=== PATIENT | male | born 1975 | race Caucasian/White ===

== ENCOUNTER 2024-06-12 10:38 | Emergency (ER) | payer MEDICAID ==
[~2024-06-12] VITALS: Ht 167.6 cm; Wt 64.0 kg
[~2024-06-12 10:38] MED LIST: COR3 PO; PROT40 MT; SUCR1TAB PO; THIA100T72 PO
[2024-06-12 10:43] VITALS: O2SAT 100
[2024-06-12 10:50] VITALS: BP 160/87; PULSE 98; RESP 16; TEMP 36.3; O2SAT 97
[2024-06-12 12:59] LABS: BASOPHILS % 1.9 % (0.0-2.0); EOSINOPHILS % 3.4 % (0.0-5.0); HEMATOCRIT. 36.2 % (42.0-52.0); HEMOGLOBIN. 11.6 g/dL (14.0-18.0); LYMPHOCYTES % 28.8 % (20.0-50.0); MEAN CORPUSCULAR HEMOGLOBIN 27.1 pg (28.0-32.0); MEAN CORPUSCULAR HGB CONC 32.2 g/dL (31.0-37.0); MEAN CORPUSCULAR VOLUME 84.4 fL (80.0-94.0); MEAN PLATELET VOLUME 8.9 fl (7.4-10.4); MONOCYTES % 7.9 % (2.0-8.0); PLATELET 132 x1000/uL (130-400); RED BLOOD CELL COUNT 4.29 mill/uL (4.7-6.1); RED CELL DISTRIBUTION WIDTH 16.5 % (11.6-14.6); WHITE BLOOD COUNT 6.2 x1000/uL (4.5-11.0)
[2024-06-12 13:00] LABS: CARBON DIOXIDE 25 mEq/L (21-32); CHLORIDE 107 mEq/L (98-107); POTASSIUM 3.9 mEq/L (3.5-5.1); SODIUM 142 mEq/L (136-145)
[2024-06-12 13:02] LABS: CALCIUM 9.3 mg/dL (8.7-10.4)
[2024-06-12 13:05] LABS: CREATININE 0.8 mg/dL (0.6-1.3)
[2024-06-12 13:06] LABS: GLUCOSE 111 mg/dL (70-105); UREA NITROGEN BLOOD 12 mg/dL (9-23)
[2024-06-12 13:07] LABS: TROPONIN I HIGH SENSITIVITY < 4 ng/L (3.0-53)
[2024-06-12 13:12] LABS: INR 1.2; PARTIAL THROMBOPLASTIN TIME 32.2 sec (23.4-31.0); PROTHROMBIN TIME 13.2 sec (9.6-11.0)
[2024-06-12] MEDS ORDERED: PROT40 MT (14:13)
[2024-06-12] MEDS ORDERED: THIA100T72 PO (14:13)
[2024-06-12] MEDS ORDERED: SUCR1TAB PO (14:13)
[2024-06-12] MEDS ORDERED: COR3 PO (14:13)
== END 2024-06-12 14:18 | disposition home or self-care (01) ==
LOC: ER 10:38
DX: I85.10 Secondary esophageal varices without bleeding (principal); Z76.0 Encounter for issue of repeat prescription; E78.5 Hyperlipidemia, unspecified; I10 Essential (primary) hypertension; F10.90 Alcohol use, unspecified, uncomplicated; Z79.899 Other long term (current) drug therapy; Y90.9 Presence of alcohol in blood, level not specified
CPT/HCPCS: 36415; 71045; 80048; 84484; 85025; 86850; 86900; 99284